=== PATIENT | male | born 1955 | race Caucasian/White ===

== ENCOUNTER 2021-06-07 12:50 | Outpatient (CLI) | payer BC, MEDICARE, SELFPAY | END 2021-06-07 23:59 | disposition short-term general hospital (02) | PROVIDERS: Visit Provider Surgery | DX: Z01.818 Encounter for other preprocedural examination (principal) ==

== ENCOUNTER 2022-02-06 19:20 | Emergency (ER) | payer BC, MEDICARE, SELFPAY ==
[2022-02-06 19:21] VITALS: BP 160/78; PULSE 64; RESP 15; TEMP 37.7; O2SAT 94; BMI 20.2
--- NOTE | 2022-02-06 19:54 | ED.VIS.LOWEX ---
HPI History of Present Illness Chief Complaint: Lower Extremity Injury Informant: patient Onset/Context/Timing Onset: Yesterday Context: Gradual Onset Current Severity: Moderate Maximum Severity: Moderate Narrative Narrative: Patient presents secondary to right knee pain and swelling. He has had similar problems in the past and required steroid injections in his knee. He states it started bothering him yesterday but after work today was much worse. He states he was seen by a vein specialist in [place] recently. 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 He was told to wear compression stockings which she has been doing. [facility] Medical History Alcohol use Anxiety Arthritis Cancer Cancer, epiglottis Depression Easy bruising Former smoker Fracture Hoarseness Hypertension Leg cramps Lesion of upper extremity Thyroid disease Tumor Wears dentures Wears glasses Home Medications amlodipine 5 mg tablet 5 mg PO DAILY 03/05/21 [History Last Taken Unknown] levothyroxine 25 mcg capsule 25 mcg PO DAILY 03/05/21 [History Last Taken Unknown] losartan 100 mg tablet 100 mg PO DAILY 03/05/21 [History Last Taken Unknown] meloxicam 7.5 mg tablet (Mobic) 7.5 mg PO DAILY 03/05/21 [History Last Taken Unknown] sertraline 100 mg tablet (Zoloft) 100 mg PO DAILY 03/05/21 [History Last Taken Unknown] hydrocodone-acetaminophen 5-325mg 5mg-325mg 1 tab PO Q6H PRN pain 3 days #10 tabs 02/06/22 [Rx Last Taken Unknown] prednisone 20 mg tablet 40 mg PO DAILY #8 tabs 02/06/22 [Rx Last Taken Unknown] Allergy/AdvReac Type Severity Reaction Status Date / Time Penicillins Allergy PT UNSURE Verified 02/06/22 19:26 OF REACTION Surgical History h/o bilateral knee scope H/O hernia repair Hx of colonoscopy Social History Smoking Status: Current some day smoker tobacco type: cigarettes ROS ROS ED Constitutional Constitutional ED: Denies chills or fever(s) Eyes Eyes: Denies change in vision or discharge from eye(s) ENT ENT ED: Denies discharge from eye(s), rhinorrhea or sore throat Cardiovascular Cardiovascular: Denies chest pain or palpitations Respiratory/Chest Respiratory/Chest: Denies cough or dyspnea Gastrointestinal Gastrointestinal: Denies abdominal pain, diarrhea, nausea or vomiting Genitourinary Genitourinary ED: Denies dysuria Musculoskeletal Musculoskeletal: Reports extremity pain; Denies back pain Integumentary Denies Abrasions or rash Neurologic Neurologic: Denies headache(s) or weakness Allergic/Immunologic Allergic/Immunologic ED: Denies lip swelling or urticaria EXAM Physical Exam Const Vital Signs: 02/06/22 19:21 Temperature 99.9 F H Temperature Source Temporal Pulse Rate 64 Respiratory Rate 15 Blood Pressure 160/78 H Blood Pressure Mean 105 Pulse Ox 94 Oxygen Delivery Method Room Air Positive well nourished and well developed General Appearance ED: well developed HEENT Reports normocephalic and head/scalp atraumatic Eyes PERRL and EOMs intact bilaterally Neck supple Chest Wall inspection of chest normal and palpation of chest normal Resp normal respiratory effort and clear to auscultation bilaterally Cardio regular rate and regular rhythm GI normal to inspection, nondistended, normoactive bowel sounds Palpation: soft Extremity Extremity Narrative: Right knee edema with tenderness along the suprapatellar region. No overlying skin change. No calf tenderness or edema. Neuro oriented x3 and no sensory deficits noted Sensorium / Orientation: alert Motor Exam: strength 5/5 throughout Psych mental status grossly normal Skin no rashes or lesions noted MDM MDM MDM Narrative Medical decision making narrative: Patient given [place] for pain. X-ray of the right knee obtained along with venous ultrasound of the leg. Radiography Diagnostic Testing: Clinical Impression(s) from Imaging Studies Venous Duplex 02/06/22 19:57 IMPRESSION: There is no demonstrated deep venous thrombosis. Nonspecific complex fluid around the knee. Electronically Signed: Juanjo Wood MD at 20:54 EDT Reading Location ID and State: [facility] / [place] , Service support , Knee X-Ray 02/06/22 20:30 IMPRESSION: Degenerative arthrosis. Electronically Signed: Juanjo Wood MD at 20:54 EDT Reading Location ID and State: [facility] / [place] , Service support , Treatment and Re-Evaluation Narrative: Venous ultrasound reveals no evidence of DVT. There is edema noted around the knee. Right knee x-ray per my interpretation reveals chronic arthritic changes with no acute finding. Test results discussed with patient and at bedside. A several be applied to help with fluid absorption and swelling. He has a cane at home to use. He will be given a short course of steroids. Patient has been seen by Dr. Ulloa in the past. He will be referred to Dr. Allison for follow-up. Discharge Plan Triage Chief Complaint: Lower Extremity Injury ED Provider: Micheline Martin Dx/Rx/DC Orders Clinical Impression: Right knee sprain, Arthritis Instructions: ED Knee Sprain, ED Osteoarthritis Prescriptions: New hydrocodone-acetaminophen 5-325 mg tablet 1 tab PO Q6H PRN (Reason: pain) 3 Days Qty: 10 0RF prednisone 20 mg tablet 40 mg PO DAILY Qty: 8 0RF No Action sertraline [Zoloft] 100 mg Tablet 100 mg PO DAILY amlodipine 5 mg Tablet 5 mg PO DAILY meloxicam [Mobic] 7.5 mg Tablet 7.5 mg PO DAILY losartan 100 mg Tablet 100 mg PO DAILY levothyroxine 25 mcg Capsule 25 mcg PO DAILY Primary Care Provider: Booker Kim Referrals: Bola Allison DO [Med Staff - Active Staff] - 5-7 Days Booker Kim MD [Primary Care Provider] - Disposition Disposition: Home, Self Care
--- NOTE | 2022-02-06 19:57 | US_ITS ---
STUDY: VENOUS DOPPLER ULTRASOUND - RIGHT LOWER EXTREMITY REASON FOR EXAM: Male, 66 years old. LEG PAIN AND SWELLING RT KNEE PAIN AND SWELLING TECHNIQUE: Ultrasound evaluation of the deep vein system to include dc-scale imaging and compression was performed. Dc-scale imaging and Doppler sonographic evaluation, including duplex spectral analysis and qualitative color flow sonography, was performed. COMPARISON: None. FINDINGS: Common Femoral Vein: Normal compression, spontaneity and augmentation. Normal color Doppler. Common Femoral Vein/Greater Saphenous Junction: Normal compression, spontaneity and augmentation. Normal color Doppler. Superficial Femoral Proximal: Normal compression, spontaneity and augmentation. Normal color Doppler. Superficial Femoral Middle: Normal compression, spontaneity and augmentation. Normal color Doppler. Superficial Femoral Distal: Normal compression, spontaneity and augmentation. Normal color Doppler. Popliteal Vein: Normal compression, spontaneity and augmentation. Normal color Doppler. Posterior Tibial Vein: Normal compression, spontaneity and augmentation. Normal color Doppler. Peroneal Vein: Normal compression, spontaneity and augmentation. Normal color Doppler. Complex fluid around the knee. There is no demonstrated deep venous thrombosis. US/Venous Duplex Imag/Limited/Uni IMPRESSION: There is no demonstrated deep venous thrombosis. Nonspecific complex fluid around the knee. Electronically Signed: Juanjo Wood MD at 20:54 EDT ,
--- NOTE | 2022-02-06 20:30 | RAD_ITS ---
STUDY: XR Knee Complete 4 Views or More 02/06/2022 8:53 PM REASON FOR EXAM: Male, 66 years old. pain TECHNIQUE: XR Knee Complete 4 Views or More RIGHT COMPARISON: None FINDINGS: Normal visualized distal femur. Normal visualized proximal tibia and fibula. Normal proximal tibiofibular articulation. There is moderate degenerative arthrosis of the medial femorotibial compartment with moderate joint space narrowing. There is moderate degenerative arthrosis of the lateral femorotibial compartment with moderate joint space narrowing. There is moderate degenerative arthrosis of the patellofemoral articulation. The soft tissue structures are unremarkable. RAD/Knee 4 or More Views IMPRESSION: Degenerative arthrosis. Electronically Signed: Juanjo Wood MD at 20:54 EDT ,
[2022-02-06] MEDS: HYDROcodone Bitartrate/Apap 5/325 Tablet PO (20:38)
[2022-02-06] MEDS: predniSONE 20 MG Tablet 40 MG PO (21:04)
[2022-02-06 21:07] VITALS: BP 160/76; PULSE 72; RESP 18; O2SAT 92
== END 2022-02-06 21:24 | disposition home or self-care (01) ==
PROVIDERS: Emergency Provider Emergency Medicine; PCP Internal Medicine; Visit Provider Emergency Medicine
DX: S83.91XA Sprain of unspecified site of right knee, initial encounter (principal); M17.11 Unilateral primary osteoarthritis, right knee; M79.89 Other specified soft tissue disorders; F17.210 Nicotine dependence, cigarettes, uncomplicated; X58.XXXA Exposure to other specified factors, initial encounter
CPT/HCPCS: 73564; 93971; 99283

== ENCOUNTER 2022-04-11 15:30 | Outpatient (RCR) | payer MEDICARE, BC, SELFPAY ==
--- NOTE | 2022-03-12 17:25 | HP.PTEVAL ---
Patient's Visit Information SHONNA MUNOZ is a 66 year old M referred to Physical Therapy by LUPE Ortega with a diagnosis of UNILATERAL PRIMARY OSTEOARTHRITIS RIGHT KNEE,IT BAND STNDROME RIGT KNEE. Date of Evaluation: 03/12/22 Physical Therapist: Shaheed Fernandez, PT, Cert MDT, OCS - Visit Plan Frequency: 2x /Week Duration: 4 Weeks Plan: PT INTERVETIONS ROM/FLEXABLITY RIGHT KNEE , STRENGTHNEING QUADS/HAMS/HIP AND FUNCTIONAL STRENGTHENING - Subjective This 66 y/o male presents to physical therapy with right knee pain . Patient has had knee pain pain for ~ 2years . . Patient had knee arthroscopic 10 years . Seen PA tried cortisone x-rays showed mod DJD joint and patella. Patient pain is global. Aggravating factors squatting/kneeling and extended walking and standing. Patient is better cortisone and rest. Patient denies paresthesia/tingling . Patient pain function and job demands and housework tasks. Patient has no edema. Patient goals to decrease pain. SOCIAL: . VOCATION: retired ,works at [employer] - Pain Right Knee Pain Intensity (Out of 10): 7 Pain Intensity Range: 10 - Objective POSTURE: knee varum. PALPTION: lateral joint. EDEMA: absent. AROM: 0-130 supine knee flexion pain at ER crepitus. MMT: quads/hams 4/5 ,hip flexion 4/5 ,hip abduction 4-/5 ,ankle 4/5. FLEXABLITY: hamstrings min tight. GAIT: ambulated with mid decrease stance - Special Tests R Knee Kingsley - Meniscus: Negative R Knee Valgus - MCL: Negative R Knee Varus - LCL: Negative R Knee Patellar Apprehension - PFS: Positive R Knee Patellar Grind - PFS: Positive - Balance/Special Test Scores Lower Extremity Functional Score: 35 - Goals Goal 1:: I with HEP for knee Goal Time Frame: 4-6 Weeks Goal 2:: Patient to demonstrate 50% with less pain to improved function Goal Time Frame: 4-6 Weeks Goal 3:: Patient to improve AROM to ascend/descend with less pain Goal Time Frame: 4-6 Weeks Goal 4:: Patient to improve LFES score by 5 -10 points to improve function Goal Time Frame: 4-6 Weeks - Rehabilitation Potential Physical Therapy Diagnosis: This patient has right knee pain with weakness pain with activities causes impairment with ADL's and housework tasks thus benefit from skilled PT, x-rays showed mod arthrosis Rehabilitation Potential: Good - Anticipated Interventions Patient/Client Instruction: Educate patient on: Condition, Plan of Care For the Purpose of:: To decrease pain, To increase ROM, To improve muscle performance and motor function, To improve ability to perform ADL's, To increase tolerance to activity/condition/position, To improve ability of physical actions for home/community/work/leisure, To improve health of tissue, To decrease soft tissue restriction, To increase flexibility/ROM Therapeutic Exercise to Include: Strength training, Endurance training, Flexibilty training, Active ROM Comment: STRENGTHNEING QUADS/HAMS/HIP For the Purpose of:: To decrease pain, To increase ROM, To improve muscle performance and motor function, To improve ability to perform ADL's, To increase tolerance to activity/condition/position, To improve ability of physical actions for home/community/work/leisure, To improve health of tissue, To decrease soft tissue restriction, To reduce risk of recurrence Thank you for the opportunity to evaluate your patient. For Medicare and Medicare HMO plans, please review the plan of care and approve it. It will need to be FAXED BACK to us at [phone] for Medicare purposes. For Medicare only, by signing this I certify the plan of care. Please let me know if there are questions or concerns regarding this plan of care. Physician Signature: Date:
--- NOTE | 2022-09-11 14:56 | HP.PT.NRP ---
SHONNA MUNOZ was seen in my office for initial evaluation on 03/12/22. The following Plan of Care was established for this patient: Initial Frequency: 2x /Week Initial Duration: 4 Weeks Patient/Client Instruction: Educate patient on: Condition, Plan of Care For the Purpose of:: To decrease pain, To increase ROM, To improve muscle performance and motor function, To improve ability to perform ADL's, To increase tolerance to activity/condition/position, To improve ability of physical actions for home/community/work/leisure, To improve health of tissue, To decrease soft tissue restriction, To increase flexibility/ROM Therapeutic Exercise to Include: Strength training, Endurance training, Flexibilty training, Active ROM For the Purpose of:: To decrease pain, To increase ROM, To improve muscle performance and motor function, To improve ability to perform ADL's, To increase tolerance to activity/condition/position, To improve ability of physical actions for home/community/work/leisure, To improve health of tissue, To decrease soft tissue restriction, To reduce risk of recurrence This patient was last seen in our office . Pertinent comments regarding their Physical therapy will appear below: Patient seen for PT for right knee pain and I T BAND focusing on strengthening/stretching's and manual techniques . Patient doing better with these PT intervtions. At this point I will be discontinuing this patient from physical therapy. I would be happy to see this patient again in the future if found appropriate by the physician. Thank you! Shaheed Fernandez, PT, Cert MDT, OCS Balance/Gait/Functional tests - Balance/Special Test Scores Lower Extremity Functional Score: 68
== END 2022-04-11 19:00 | disposition home or self-care (01) ==
LOC: PT 15:30
PROVIDERS: PCP Internal Medicine; Referring Provider Physician Assistant; Visit Provider Physician Assistant
DX: M76.31 Iliotibial band syndrome, right leg (principal); M17.11 Unilateral primary osteoarthritis, right knee
CPT/HCPCS: 97110; 97162

== ENCOUNTER → 2024-06-09 | Outpatient (CLI) | payer OTHER, MEDICARE, SELFPAY ==
--- NOTE | 2024-06-09 10:08 | EKG12_ITS ---
Test Reason : PRE OP Blood Pressure : */* mmHG Vent. Rate : 55 BPM Atrial Rate : 55 BPM P-R Int : 166 ms QRS Dur : 148 ms QT Int : 492 ms P-R-T Axes : 71 142 80 degrees QTcB Int : 470 ms Sinus bradycardia with Premature atrial complexes Right bundle branch block Lateral infarct , age undetermined Abnormal ECG Confirmed by HAYDEN SANTIAGO, BALBINA ([id number]), film editor JACOB EDWARD ([id number]) on 06/09/2024 1:14:14 PM Referred By: Jesús Lovtet Confirmed By: BALBINA BLAKE MD
[2024-06-09 10:34] LABS: Hematocrit 43.4 % (40-54); Mean Corp Hgb Conc 32.3 g/dL (32-36); Mean Corpuscular Volume 86.8 fL (80-94); Mean Platelet Vol. 9.2 fl (6.2-12.0); Platelet Count 224 K/mm3 (150-450); RBC Distribution Width CV 15.9 % (11.6-14.6); RBC Distribution Width SD 50.1 fl (35.1-43.9); White Blood Count 6.7 K/mm3 (4.4-11.0)
[2024-06-09 11:20] LABS: Anion Gap 5 (5-15); BUN 23 mg/dL (7-18); BUN/Creat Ratio 19.7 RATIO (10-20); Calcium,Total 8.9 mg/dL (8.5-10.1); Chloride 104 mmol/L (98-107); Creatinine, Serum 1.17 mg/dL (0.70-1.30); EST Glomerular Filtration Rate 65 mL/min (>60); Est Glom Filt Rate - Afr Amer 79 mL/min (>60); Glucose 94 mg/dL (74-106); Potassium 4.4 mmol/L (3.5-5.1); Sodium Level 138 mmol/L (136-145)
== END | disposition home or self-care (01) ==
PROVIDERS: PCP Internal Medicine; Referring Provider Otolaryngology; Visit Provider Otolaryngology
DX: Z01.812 Encounter for preprocedural laboratory examination (principal); Z01.810 Encounter for preprocedural cardiovascular examination
CPT/HCPCS: 36415; 80048; 85027; 93005

== ENCOUNTER 2024-07-25 07:48 | Day surgery (SDC) | payer OTHER, MEDICARE, SELFPAY ==
--- NOTE | 2024-07-18 12:15 | PAT.ANESEVAL ---
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 When Was Last Pacemaker Check QUESTION #4 FULL TEXT: You/Your Family Experience fever (hyperthermia) with Anesthesia Last Oral Intake Last Oral intake: Last Oral Intake NPO since Meds taken in AM with sips of water? Meds patient instructed to take am of surgery PONV PONV - director of search engine optimization: PONV - director of search engine optimization Female No 07/18/24 10:08 HX of Motion Sickness No 07/18/24 10:08 HX of N/V After Surgery No 07/18/24 10:08 Non-Smoker No 07/18/24 10:08 Duration of Surgery greater No 07/18/24 10:08 than 60 minutes Number of Risk Factors PONV Score Height & Weight Height & Weight: Anesthesia: Height & Weight Height 5 ft 8 in 06/17/24 13:40 Respiratory Assessment Respiratory Assessment - director of search engine optimization: Respiratory Tract Infection Hx - director of search engine optimization Hx Respiratory Tract Infection No 07/18/24 10:08 STOP Sleep Apnea STOP Sleep Apnea - director of search engine optimization: STOP Sleep Apnea - director of search engine optimization Hx Hypertension Yes: CONTROLLED WITH MEDS 07/18/24 10:08 Hx Sleep Apnea No 07/18/24 10:08 CPAP BIPAP Do you snore loudly (louder No 07/18/24 10:08 than talking or can be heard Do you often feel tired/ Yes 07/18/24 10:08 fatigued/ sleepy during daytime? Has anyone observed you stop No 07/18/24 10:08 breathing during sleep? STOP Results Positive 07/18/24 10:08 QUESTION #5 FULL TEXT : Do you snore loudly (louder than talking or can be heard through closed doors)? 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 Specify any problems Hx of Preganancy in last 3 N/A 07/18/24 10:08 Months Nurse Filling Out Transfusion DSCHRIBER 07/18/24 10:08 & Questions: Date: 07/18/24 07/18/24 10:08 Time: 10:10 07/18/24 10:08 Patient unable to answer at this time (ie. 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 History - director of search engine optimization: /Reproductive Hx- director of search engine optimization Hx Now No 07/18/24 10:08 Gestational Age (in weeks): EDC: Hx Hx Para Hx Section SAB No 07/18/24 10:08 [facility] Medical History (Updated 07/18/24 @ 10:21 by Kim Newman) Loss of hearing History of steroid therapy High cholesterol Restless legs Difficulty swallowing Heartburn Smoker COPD (chronic obstructive pulmonary disease) Shortness of breath on exertion History of pain when walking History of edema History of echocardiogram History of stress test Cardiology follow-up encounter History of CHF (congestive heart failure) Wears glasses Wears dentures Cancer Depression Alcohol use Lesion of upper extremity Thyroid disease Arthritis Easy bruising Hoarseness Leg cramps Fracture Tumor Cancer, epiglottis Anxiety Hypertension Home Medications ?Medication ?Instructions ?Recorded ?Last Taken ?Type amlodipine 5 mg tablet 5 mg PO DAILY 03/05/21 Unknown History levothyroxine 25 mcg capsule 50 mcg PO DAILY 03/05/21 Unknown History losartan 100 mg tablet 100 mg PO DAILY 03/05/21 Unknown History meloxicam 7.5 mg tablet (Mobic) 7.5 mg PO DAILY 03/05/21 Unknown History sertraline 100 mg tablet (Zoloft) 150 mg PO DAILY 03/05/21 Unknown History albuterol sulfate 90 mcg/actuation 2 puff inhalation Q6H PRN PRN 07/18/24 Unknown History aerosol inhaler wheezing fluticasone propionate 50 2 spray intranasal DAILY PRN nasal 07/18/24 Unknown History mcg/actuation nasal congestion spray,suspension furosemide 40 mg tablet 40 mg PO DAILY 07/18/24 Unknown History ibuprofen 800 mg tablet 800 mg PO Q8H PRN PRN pain 07/18/24 Unknown History metoprolol succinate 25 mg 12.5 mg PO QHS 07/18/24 Unknown History tablet,extended release 24 hr rosuvastatin 10 mg tablet 10 mg PO QHS 07/18/24 Unknown History sacubitril 97 mg-valsartan 103 mg 1 tab PO BID 07/18/24 Unknown History tablet (Entresto) spironolactone 25 mg tablet 25 mg PO DAILY 07/18/24 Unknown History trazodone 50 mg tablet 50 mg PO QHS 07/18/24 Unknown History Allergy/AdvReac Type Severity Reaction Status Date / Time Penicillins Allergy PT UNSURE Verified 07/18/24 09:59 OF REACTION prednisone AdvReac Intermediate Other Verified 07/18/24 09:59 Surgical History Hx of colonoscopy H/O hernia repair h/o bilateral knee scope Social History Smoking Status: Current every day smoker tobacco type: cigarettes Audit: Pertinent Findings Pertinent Findings EKG Perinent findings: 06/09/2024. Sinus bradycardia 55 bpm with premature atrial complexes. Right bundle branch block. Lateral infarct, age undetermined Echo (EF%) pertinent findings: EF 28%. 09/28/2023. History of nonischemic cardiomyopathy. Moderate pulmonary hypertension Consult pertinent findings: Cardiology scanned document. History of nonischemic cardiomyopathy with EF 28% in 2023. Moderate pulmonary hypertension. Frequent SVT and premature beats. History of hypertension. History of smoking. Plan was to continue Toprol. Spironolactone. Lasix every other day. Amlodipine. Recommendation Anesthesia Recommendation Anesthesia recommendation: OPTIMIZED for anesthesia
--- NOTE | 2024-07-19 09:05 | PAT.ANESEVAL ---
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 When Was Last Pacemaker Check QUESTION #4 FULL TEXT: You/Your Family Experience fever (hyperthermia) with Anesthesia Last Oral Intake Last Oral intake: Last Oral Intake NPO since Meds taken in AM with sips of water? Meds patient instructed to take am of surgery PONV PONV - shredder/granulator operator: PONV - shredder/granulator operator Female No 07/18/24 10:08 HX of Motion Sickness No 07/18/24 10:08 HX of N/V After Surgery No 07/18/24 10:08 Non-Smoker No 07/18/24 10:08 Duration of Surgery greater No 07/18/24 10:08 than 60 minutes Number of Risk Factors PONV Score Height & Weight Height & Weight: Anesthesia: Height & Weight Height 5 ft 8 in 06/17/24 13:40 Respiratory Assessment Respiratory Assessment - shredder/granulator operator: Respiratory Tract Infection Hx - shredder/granulator operator Hx Respiratory Tract Infection No 07/18/24 10:08 STOP Sleep Apnea STOP Sleep Apnea - shredder/granulator operator: STOP Sleep Apnea - shredder/granulator operator Hx Hypertension Yes: CONTROLLED WITH MEDS 07/18/24 10:08 Hx Sleep Apnea No 07/18/24 10:08 CPAP BIPAP Do you snore loudly (louder No 07/18/24 10:08 than talking or can be heard Do you often feel tired/ Yes 07/18/24 10:08 fatigued/ sleepy during daytime? Has anyone observed you stop No 07/18/24 10:08 breathing during sleep? STOP Results Positive 07/18/24 10:08 QUESTION #5 FULL TEXT : Do you snore loudly (louder than talking or can be heard through closed doors)? 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 Specify any problems Hx of Preganancy in last 3 N/A 07/18/24 10:08 Months Nurse Filling Out Transfusion DSCHRIBER 07/18/24 10:08 & Questions: Date: 07/18/24 07/18/24 10:08 Time: 10:10 07/18/24 10:08 Patient unable to answer at this time (ie. 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 History - shredder/granulator operator: /Reproductive Hx- shredder/granulator operator Hx Now No 07/18/24 10:08 Gestational Age (in weeks): EDC: Hx Hx Para Hx Section SAB No 07/18/24 10:08 [facility] Medical History (Updated 07/18/24 @ 10:21 by Kim Newman) Loss of hearing History of steroid therapy High cholesterol Restless legs Difficulty swallowing Heartburn Smoker COPD (chronic obstructive pulmonary disease) Shortness of breath on exertion History of pain when walking History of edema History of echocardiogram History of stress test Cardiology follow-up encounter History of CHF (congestive heart failure) Wears glasses Wears dentures Cancer Depression Alcohol use Lesion of upper extremity Thyroid disease Arthritis Easy bruising Hoarseness Leg cramps Fracture Tumor Cancer, epiglottis Anxiety Hypertension Home Medications ?Medication ?Instructions ?Recorded ?Last Taken ?Type amlodipine 5 mg tablet 5 mg PO DAILY 03/05/21 Unknown History levothyroxine 25 mcg capsule 50 mcg PO DAILY 03/05/21 Unknown History losartan 100 mg tablet 100 mg PO DAILY 03/05/21 Unknown History meloxicam 7.5 mg tablet (Mobic) 7.5 mg PO DAILY 03/05/21 Unknown History sertraline 100 mg tablet (Zoloft) 150 mg PO DAILY 03/05/21 Unknown History albuterol sulfate 90 mcg/actuation 2 puff inhalation Q6H PRN PRN 07/18/24 Unknown History aerosol inhaler wheezing fluticasone propionate 50 2 spray intranasal DAILY PRN nasal 07/18/24 Unknown History mcg/actuation nasal congestion spray,suspension furosemide 40 mg tablet 40 mg PO DAILY 07/18/24 Unknown History ibuprofen 800 mg tablet 800 mg PO Q8H PRN PRN pain 07/18/24 Unknown History metoprolol succinate 25 mg 12.5 mg PO QHS 07/18/24 Unknown History tablet,extended release 24 hr rosuvastatin 10 mg tablet 10 mg PO QHS 07/18/24 Unknown History sacubitril 97 mg-valsartan 103 mg 1 tab PO BID 07/18/24 Unknown History tablet (Entresto) spironolactone 25 mg tablet 25 mg PO DAILY 07/18/24 Unknown History trazodone 50 mg tablet 50 mg PO QHS 07/18/24 Unknown History Allergy/AdvReac Type Severity Reaction Status Date / Time Penicillins Allergy PT UNSURE Verified 07/18/24 09:59 OF REACTION prednisone AdvReac Intermediate Other Verified 07/18/24 09:59 Surgical History Hx of colonoscopy H/O hernia repair h/o bilateral knee scope Social History Smoking Status: Current every day smoker tobacco type: cigarettes Audit: Pertinent Findings HISTORY of Pertinent Findings History of Pertinent Findings: EKG Pertinent Findings EKG Perinent findings 06/09/2024. Sinus 07/18/24 12:19 bradycardia 55 bpm with premature atrial complexes. Right bundle branch block. Lateral infarct, age undetermined Echo Pertinent Findings Echo (EF%) pertinent findings EF 28%. 09/28/2023. History 07/18/24 12:19 of nonischemic cardiomyopathy. Moderate pulmonary hypertension Consult Pertinent Findings Consult pertinent findings Cardiology scanned document. 07/18/24 12:19 History of nonischemic cardiomyopathy with EF 28% in 2023. Moderate pulmonary hypertension. Frequent SVT and premature beats. History of hypertension. History of smoking. Plan was to continue Toprol. Spironolactone. Lasix every other day. Amlodipine. Recommendation Anesthesia Recommendation Anesthesia recommendation: OPTIMIZED for anesthesia
[2024-07-25] VITALS (8 sets, daily range): BP systolic 97–126; BP diastolic 62–74; PULSE 55–74; RESP 16–20; TEMP 36.2–36.8; O2SAT 90–98; BMI 19.8
[2024-07-25] MEDS: 0.9% Normal Saline (1000mL) 1,000 ML 15 ML IV (08:38)
--- NOTE | 2024-07-25 09:25 | PCM.PRE.AN2 ---
ASA Classification* ASA Classification ASA Classification: 3 Assessment & Plan Anesthesia* Anesthesia Assessment Anesthesia Assessment: Discussed sedation and/or anesthesia options, risks, benefits, and alternatives with patient/parents/legal guardian/POA. Questions invited. The patient/parents/legal guardian/POA seems to understand and agrees to proceed with anesthesia plan. Reviewed the physical assessment, medical history, allergy history and patient home medications list prior to surgery/procedure/anesthetic and documented any changes. Performed airway and anesthesia risk assessments. Anesthesia Type Anesthesia Type: General History Source History Obtained from:: Patient and Chart Anesthesia Focused Assessment* Temperature: 97.2 F Pulse Rate: 55 Blood Pressure: 118/74 Respiratory Rate: 20 Pulse Ox: 96 Oxygen Delivery Method: Room Air Airway Assessment Mouth opens: >3 cm Mallampati Score: III Teeth Condition: Dentures (Upper denture is out.) and Missing (Patient is edentulous on the bottom.) Neck Range of motion (ROM): Full ROM Focused Labs Anesthesia Preop lab: CBC WBC 6.7 K/mm3 (4.4-11.0) 06/09/24 10:16 06/09/24 RBC 5.00 M/mm3 (4.6-6.2) 06/09/24 10:16 06/09/24 Hgb 14.0 g/dL (13.0-16.5) 06/09/24 10:16 06/09/24 Hct 43.4 % (40-54) 06/09/24 10:16 06/09/24 Plt Count 224 K/mm3 (150-450) 06/09/24 10:16 06/09/24 CHEMISTRY Potassium 4.4 mmol/L (3.5-5.1) 06/09/24 10:16 06/09/24 Sodium 138 mmol/L (136-145) 06/09/24 10:16 06/09/24 BUN 23 mg/dL (7-18) H 06/09/24 10:16 06/09/24 Creatinine 1.17 mg/dL (0.70-1.30) 06/09/24 10:16 06/09/24 Glucose 94 mg/dL (74-106) 06/09/24 10:16 06/09/24 COAG Pre-Assessment Diagnosis/Proposed Procedure Planned Operative Procedure(s): RIGHT MYRINGOTOMY TUBE Anesthesia History 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 When Was Last Pacemaker Check QUESTION #4 FULL TEXT: You/Your Family Experience fever (hyperthermia) with Anesthesia Last Oral Intake Last Oral intake: Last Oral Intake NPO since 23:00 07/25/24 08:29 Meds taken in AM with sips of water? Meds patient instructed to take am of surgery PONV PONV - telecommunications sales representative: PONV - telecommunications sales representative Female No 07/18/24 10:08 HX of Motion Sickness No 07/18/24 10:08 HX of N/V After Surgery No 07/18/24 10:08 Non-Smoker No 07/18/24 10:08 Duration of Surgery greater No 07/18/24 10:08 than 60 minutes Number of Risk Factors PONV Score Height & Weight Height & Weight: Anesthesia: Height & Weight Height 5 ft 8 in 07/25/24 08:29 Weight: 59.1 kg 07/25/24 08:29 Body Mass Index (BMI) 19.8 07/25/24 08:29 Respiratory Assessment Respiratory Assessment - telecommunications sales representative: Respiratory Tract Infection Hx - telecommunications sales representative Hx Respiratory Tract Infection No 07/18/24 10:08 STOP Sleep Apnea STOP Sleep Apnea - telecommunications sales representative: STOP Sleep Apnea - telecommunications sales representative Hx Hypertension Yes: CONTROLLED WITH MEDS 07/18/24 10:08 Hx Sleep Apnea No 07/18/24 10:08 CPAP BIPAP Do you snore loudly (louder No 07/18/24 10:08 than talking or can be heard Do you often feel tired/ Yes 07/18/24 10:08 fatigued/ sleepy during daytime? Has anyone observed you stop No 07/18/24 10:08 breathing during sleep? STOP Results Positive 07/18/24 10:08 QUESTION #5 FULL TEXT : Do you snore loudly (louder than talking or can be heard through closed doors)? 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 Specify any problems Hx of Preganancy in last 3 N/A 07/18/24 10:08 Months Nurse Filling Out Transfusion DSCHRIBER 07/18/24 10:08 & Questions: Date: 07/18/24 07/18/24 10:08 Time: 10:10 07/18/24 10:08 Patient unable to answer at this time (ie. 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: /Reproductive Hx- telecommunications sales representative Hx Now No 07/18/24 10:08 Gestational Age (in weeks): EDC: Hx Hx Para Hx Section SAB No 07/18/24 10:08 Active Medications Active Medications: Current Medications Generic Name Dose Route Start Last Admin Trade Name Freq PRN Reason Stop Dose Admin Sodium Chloride 1,000 mls @ 15 mls/hr 07/25/24 08:40 07/25/24 08:38 IV 15 mls/hr .Q48H EVAN Administration PFSH Medical History Loss of hearing History of steroid therapy High cholesterol Restless legs Difficulty swallowing Heartburn Smoker COPD (chronic obstructive pulmonary disease) Shortness of breath on exertion History of pain when walking History of edema History of echocardiogram History of stress test Cardiology follow-up encounter History of CHF (congestive heart failure) Wears glasses Wears dentures Cancer Depression Alcohol use Lesion of upper extremity Thyroid disease Arthritis Easy bruising Hoarseness Leg cramps Fracture Tumor Cancer, epiglottis Anxiety Hypertension Home Medications ?Medication ?Instructions ?Recorded ?Last Taken ?Type amlodipine 5 mg tablet 5 mg PO DAILY 03/05/21 07/25/24 History levothyroxine 25 mcg capsule 50 mcg PO DAILY 03/05/21 07/25/24 History losartan 100 mg tablet 100 mg PO DAILY 03/05/21 07/24/24 History meloxicam 7.5 mg tablet (Mobic) 7.5 mg PO DAILY 03/05/21 Unknown History sertraline 100 mg tablet (Zoloft) 150 mg PO DAILY 03/05/21 07/25/24 History albuterol sulfate 90 mcg/actuation 2 puff inhalation Q6H PRN PRN 07/18/24 Unknown History aerosol inhaler wheezing fluticasone propionate 50 2 spray intranasal DAILY PRN nasal 07/18/24 Unknown History mcg/actuation nasal congestion spray,suspension furosemide 40 mg tablet 40 mg PO DAILY 07/18/24 07/21/24 History ibuprofen 800 mg tablet 800 mg PO Q8H PRN PRN pain 07/18/24 Unknown History metoprolol succinate 25 mg 12.5 mg PO QHS 07/18/24 07/25/24 History tablet,extended release 24 hr rosuvastatin 10 mg tablet 10 mg PO QHS 07/18/24 07/24/24 History sacubitril 97 mg-valsartan 103 mg 1 tab PO BID 07/18/24 07/25/24 History tablet (Entresto) spironolactone 25 mg tablet 25 mg PO DAILY 07/18/24 Unknown History trazodone 50 mg tablet 50 mg PO QHS 07/18/24 Unknown History Allergy/AdvReac Type Severity Reaction Status Date / Time Penicillins Allergy PT UNSURE Verified 07/25/24 08:27 OF REACTION prednisone AdvReac Intermediate Other Verified 07/25/24 08:27 Surgical History Hx of colonoscopy H/O hernia repair h/o bilateral knee scope Social History Smoking Status: Current every day smoker (Patient did not smoke today.) tobacco type: cigarettes Review of Systems (Anesthesia) ROS Narrative System reviewed and no additional complaints, except as documented.
--- NOTE | 2024-07-25 09:28 | DS.PCM_ITS ---
Providers Primary Care Physician: Dr. Booker Kim MD Reason For Visit: RIGHT MYRINGOTOMY TUBE Medications at Discharge Home Medications amlodipine 5 mg tablet 5 mg PO DAILY 03/05/21 levothyroxine 25 mcg capsule 50 mcg PO DAILY 03/05/21 losartan 100 mg tablet 100 mg PO DAILY 03/05/21 meloxicam 7.5 mg tablet (Mobic) 7.5 mg PO DAILY 03/05/21 sertraline 100 mg tablet (Zoloft) 150 mg PO DAILY 03/05/21 albuterol sulfate 90 mcg/actuation aerosol inhaler 2 puff inhalation Q6H PRN PRN wheezing 07/18/24 fluticasone propionate 50 mcg/actuation nasal spray,suspension 2 spray intranasal DAILY PRN nasal congestion 07/18/24 furosemide 40 mg tablet 40 mg PO DAILY 07/18/24 ibuprofen 800 mg tablet 800 mg PO Q8H PRN PRN pain 07/18/24 metoprolol succinate 25 mg tablet,extended release 24 hr 12.5 mg PO QHS 07/18/24 rosuvastatin 10 mg tablet 10 mg PO QHS 07/18/24 sacubitril 97 mg-valsartan 103 mg tablet (Entresto) 1 tab PO BID 07/18/24 spironolactone 25 mg tablet 25 mg PO DAILY 07/18/24 trazodone 50 mg tablet 50 mg PO QHS 07/18/24 Weight / BMI Weight Weight: 59.1 kg Body Mass Index (BMI) 19.8 D/C Instructions Discharge Diet: No restrictions Discharge Activity: Return to Normal Activity Additional Activity Instructions: Ear drops....5 drops each ear twice a day for 2 days (3 doses) DC O2, CPAP, BIPAP Needs Home O2 Discharge instructions: No Please Follow Up With: Jesús Lovett MD When: 3 weeks Meaningful Use Info Meaningful Use Meaningful Use Diagnoses (Choose all that apply): None applicable Ischemic Stroke Statin Dosing Therapy Reference: STATIN DOSE THERAPY REFERENCE: * Patients > 75 years receive moderate or high dose statin therapy. * Patients 75 years or YOUNGER should receive HIGH intensity statin dose unless contraindicated. You will be required to document reason for non-treatment if statin daily dose does not meet guidelines. HIGH DOSE STATIN THERAPY DAILY Atorvastatin > than or = to 40 mg Rosuvastatin > than or = to 20 mg Amlodipine + Atorvastatin > than or = to 2.5/40 mg Ezetimibe + Simvastatin 10/80 mg Simvastatin 80mg Discharge Plan Admission Attending Provider: Jesús Lovett Primary Care Provider: Booker Kim Instructions Print Language: Luxembourgish Discharge Orders/Prescriptions Prescriptions: No Action sertraline [Zoloft] 100 mg Tablet 150 mg PO DAILY amlodipine 5 mg Tablet 5 mg PO DAILY meloxicam [Mobic] 7.5 mg Tablet 7.5 mg PO DAILY losartan 100 mg Tablet 100 mg PO DAILY levothyroxine 25 mcg Capsule 50 mcg PO DAILY albuterol sulfate 90 mcg/actuation HFA aerosol inhaler 2 puff INHALATION Q6H PRN PRN (Reason: wheezing) sacubitril-valsartan [Entresto] 97-103 mg tablet 1 tab PO BID fluticasone propionate 50 mcg/actuation spray,suspension 2 spray INTRANASAL DAILY PRN (Reason: nasal congestion) trazodone 50 mg tablet 50 mg PO QHS ibuprofen 800 mg tablet 800 mg PO Q8H PRN PRN (Reason: pain) furosemide 40 mg tablet 40 mg PO DAILY metoprolol succinate 25 mg tablet extended release 24 hr 12.5 mg PO QHS spironolactone 25 mg tablet 25 mg PO DAILY rosuvastatin 10 mg tablet 10 mg PO QHS Referrals / Follow Up: Booker Kim MD [Primary Care Provider] - Disposition Disposition (needs filled in before D/C Order can be placed): Home, Self Care
--- NOTE | 2024-07-25 09:30 | OP.PCM_ITS ---
Operative Report (Standard) Operative Information Date of Procedure: 07/25/24 Pre-Operative Diagnosis: right chronic serous otitis media Post-Operative Diagnosis: same Surgery/Procedure Performed: Right myringotomy with tube secretary board of commissioners: No Type of Anesthesia: General RN Documented Start/Stop Times: Operation Date: 07/25/24 09:30 Case Time Into Pre-Op 07/25/24 08:09 Out of Pre-Op 07/25/24 09:34 Anesthesia Start 07/25/24 09:37 Into Room 07/25/24 09:37 Procedure Start 07/25/24 09:44 Procedure End 07/25/24 09:47 Procedure Start Time: 09:44 Procedure Stop Time: 09:46 Select all DRAINS/GRAFTS/IMPLANTS that apply: None Estimated Blood Loss: minimal Specimen collected: No Description of surgery: The patient was taken to the operating room on 07/25/2024. The patient was placed in the supine position on the operating room table. The patient was given sufficient general anesthesia. The operating microscope was used throug hout the entire case. A speculum was inserted into the patient's right ear. Cerumen was removed using a curette. An incision was placed in the anterior inferior quadrant of the tympanic membrane. Fluid was suctioned from the middle ear space using #5 suction. A Toin Bobin tube was placed without difficulty. Antibiotic drops were instilled into the patient's ear. The patient was then awoken. They were brought to the recovery room in stable condition. Blood loss minimal, replacement none. sponge, needle and instrument counts correct at the end of the procedure. Surgical Findings: fluid right middle ear Complications Complications: No
[2024-07-25] MEDS: Ciprofloxacin 0.3% 2.5ml Bottle 1 DRP (09:46)
--- NOTE | 2024-07-25 09:52 | PCM.POST.ANE ---
Anesthesia: Postop Eval I Current Vital Signs Temperature: 98.3 F Pulse Rate: 68 Blood Pressure: 98/63 Respiratory Rate: 20 Pulse Ox: 94 Assessment Airway patent: Yes Spontaneous unlabored respirations: Yes nausea: No Vomiting: No Anesthesia Complication: No Fluid Hydration Crystalloid volume administer (ml): 500 Total IV fluid infused: 500 Progress Note Anesthesia document: Postop Eval 1 completed: Yes
--- NOTE | 2024-07-25 10:05 | POSTOPAN2_ITS ---
Anesthesia Postop Eval I Sum Postop Eval Completion status Anesthesia document: Postop Eval 1 completed: Yes Anesthesia Postop Eval I Summary Anesthesia Postop Eval I Summary: Anesthesia Postop Eval I: Assessment Summary Airway patent Yes 07/25/24 09:52 PRINCIPAL TRAINER.CSIR Spontaneous unlabored Yes 07/25/24 09:52 PRINCIPAL TRAINER.CSIR respirations Mental status nausea No 07/25/24 09:52 PRINCIPAL TRAINER.CSIR Vomiting No 07/25/24 09:52 PRINCIPAL TRAINER.CSIR Anesthesia Postop Eval I: Fluid Summary Crystalloid volume administer 500 07/25/24 09:52 PRINCIPAL TRAINER.CSIR (ml) Colloids volume administered ( ml) Blood Product volume administered (ml) Total IV fluid infused 500 07/25/24 09:52 PRINCIPAL TRAINER.CSIR Anesthesia Postop Eval I: Summary Notes Anesthesia Complication No 07/25/24 09:52 PRINCIPAL TRAINER.CSIR Anesthesia Complication Comment: Post-operative progress note Anesthesia: Postop Eval II Evaluation Mental status: Awake Pain Level: 1 nausea: No Vomiting: No
--- NOTE | 2024-07-25 10:05 | PCM.POSTANE2 ---
Anesthesia Postop Eval I Sum Postop Eval Completion status Anesthesia document: Postop Eval 1 completed: Yes Anesthesia Postop Eval I Summary Anesthesia Postop Eval I Summary: Anesthesia Postop Eval I: Assessment Summary Airway patent Yes 07/25/24 09:52 PIPE COREMAKER.CSIR Spontaneous unlabored Yes 07/25/24 09:52 PIPE COREMAKER.CSIR respirations Mental status nausea No 07/25/24 09:52 PIPE COREMAKER.CSIR Vomiting No 07/25/24 09:52 PIPE COREMAKER.CSIR Anesthesia Postop Eval I: Fluid Summary Crystalloid volume administer 500 07/25/24 09:52 PIPE COREMAKER.CSIR (ml) Colloids volume administered ( ml) Blood Product volume administered (ml) Total IV fluid infused 500 07/25/24 09:52 PIPE COREMAKER.CSIR Anesthesia Postop Eval I: Summary Notes Anesthesia Complication No 07/25/24 09:52 PIPE COREMAKER.CSIR Anesthesia Complication Comment: Post-operative progress note Anesthesia: Postop Eval II Evaluation Mental status: Awake Pain Level: 1 nausea: No Vomiting: No
== END 2024-07-25 10:41 | disposition home or self-care (01) ==
LOC: SDC 07:49 → AC 08:00
PROVIDERS: PCP Internal Medicine; Referring Provider Otolaryngology; Visit Provider Otolaryngology
PROC: (CPT 69421; principal; 2024-07-25 09:25)
DX: H65.21 Chronic serous otitis media, right ear (principal); I11.0 Hypertensive heart disease with heart failure; I50.9 Heart failure, unspecified; J44.9 Chronic obstructive pulmonary disease, unspecified; F17.210 Nicotine dependence, cigarettes, uncomplicated; H90.A31 Mixed conductive and sensorineural hearing loss, unilateral, right ear with restricted hearing on the contralateral side; Z85.21 Personal history of malignant neoplasm of larynx; R49.0 Dysphonia; H61.21 Impacted cerumen, right ear; Z79.899 Other long term (current) drug therapy; Z79.890 Hormone replacement therapy; E78.00 Pure hypercholesterolemia, unspecified; E07.9 Disorder of thyroid, unspecified
CPT/HCPCS: 69421; A4216; J2405